=== PATIENT | male | born 1975 | race Caucasian/White ===

== ENCOUNTER 2019-03-13 03:40 | Inpatient (IN) | payer OTHER ==
[~2019-03-13] VITALS: Ht 188 cm; Wt 117.9 kg
== END 2019-03-19 13:36 | disposition home or self-care (01) | DRG 372 ==
LOC: ER 03:40 → SURH 10:30
PROVIDERS: ADMIT Surgery
PROC: BW21Y0Z Computerized Tomography (CT Scan) of Abdomen and Pelvis using Other Contrast, Unenhanced and Enhanced (ICD-10-PCS; principal; 2019-03-13)
PROC: 3E0436Z Introduction of Nutritional Substance into Central Vein, Percutaneous Approach (ICD-10-PCS; 2019-03-13)
PROC: 02HV33Z Insertion of Infusion Device into Superior Vena Cava, Percutaneous Approach (ICD-10-PCS; 2019-03-14)
PROC: BW21YZZ Computerized Tomography (CT Scan) of Abdomen and Pelvis using Other Contrast (ICD-10-PCS; 2019-03-18)
DX: K35.32 Acute appendicitis with perforation, localized peritonitis, and gangrene, without abscess (principal); E44.0 Moderate protein-calorie malnutrition; K57.30 Diverticulosis of large intestine without perforation or abscess without bleeding; R16.1 Splenomegaly, not elsewhere classified